=== PATIENT | female | born 1990 | race Caucasian/White ===

== ENCOUNTER 2018-07-26 16:11 | Emergency (ER) | payer MEDICAID ==
[~2018-07-26] VITALS: Ht 177.8 cm; Wt 117.9 kg
[2018-07-26 16:23] VITALS: BP 111/68
[2018-07-26] MEDS ORDERED: LIDOCAINE HCL/PF 1% 30 ML SDV ONE (16:54)
[2018-07-26] MEDS ORDERED: BUPIVACAINE 0.5 % PF 150 MG/30 ML VIAL ONE (17:16)
[2018-07-26] MEDS ORDERED: BUPIVACAINE 0.5 % PF 150 MG/30 ML VIAL TP ONE (17:30)
[2018-07-26] MEDS ORDERED: HYDROCODONE/APAP 5/325MG 1 EACH TABLET ONE (18:16)
[2018-07-26] MEDS ORDERED: HYDROCODONE/APAP 5/325MG 1 EACH TABLET PO ONE (18:30)
== END 2018-07-26 18:53 | disposition home or self-care (01) ==
LOC: ER 16:13
DX: S61.011A Laceration without foreign body of right thumb without damage to nail, initial encounter (principal); W26.0XXA Contact with knife, initial encounter; Y93.89 Activity, other specified; Y92.89 Other specified places as the place of occurrence of the external cause; Y99.8 Other external cause status
CPT/HCPCS: A6403; J3490